=== PATIENT | female | born 1955 | race Asian ===

== ENCOUNTER 2022-02-19 15:47 | Outpatient (CLI) | payer MEDICAID ==
[2022-02-19 18:09] LABS: CREATININE,URINE 78.7 mg/dL; MICROALBUM/CREATININE RATIO,UR 8.9 ug/mg (<30.0); MICROALBUMIN,URINE 0.7 mg/dL (0-300.0)
[2022-02-19 21:14] LABS: ESTIMATED AVERAGE GLUCOSE 240 mg/dL (70-100)
== END 2022-02-19 15:48 | disposition home or self-care (01) ==
LOC: LAB.N 15:47
PROVIDERS: ATTEND Nurse Practitioner
DX: E11.9 Type 2 diabetes mellitus without complications (principal)
CPT/HCPCS: 36415; 82043; 82570; 83036

== ENCOUNTER 2022-05-16 15:20 | Outpatient (CLI) | payer MEDICAID ==
[2022-05-16 17:39] LABS: BASOPHILS % (AUTO) 0.5 %; EOSINOPHILS # (AUTO) 0.2 10^3/uL (0.0-0.7); EOSINOPHILS % (AUTO) 2.4 %; HCT - HEMATOCRIT 36.4 % (37.0-47.0); LYMPHOCYTES # (AUTO) 3.4 10^3/uL (1.5-3.5); LYMPHOCYTES % (AUTO) 39.9 %; MEAN CORPUSCULAR HEMOGLOBIN 29.1 pg (27.0-31.0); MEAN CORPUSCULAR VOLUME 88.1 fL (81.0-99.0); MEAN PLATELET VOLUME 10.7 fL (7.9-10.8); MONOCYTES # (AUTO) 0.7 10^3/uL (0.0-1.0); MONOCYTES % (AUTO) 8.5 %; NEUTROPHILS # (AUTO) 4.1 10^3/uL (1.5-6.6); NEUTROPHILS % (AUTO) 48.5 %; PLT - PLATELET COUNT 196 10^3/uL (130-450); RED BLOOD COUNT 4.13 10^6/uL (4.20-5.40); RED CELL DISTRIBUTION WIDTH 13.8 % (12.0-15.0); WHITE BLOOD COUNT 8.4 x10^3/uL (4.8-10.8)
[2022-05-16 18:28] LABS: ALBUMIN 4.3 g/dL (3.2-5.5); ALBUMIN/GLOBULIN RATIO 1.1 (1.0-2.2); BILIRUBIN,TOTAL 0.5 mg/dL (0.2-1.0); CALCIUM 10.1 mg/dL (8.5-10.3); POTASSIUM 4.5 mmol/L (3.5-5.0); TOTAL PROTEIN 8.3 g/dL (6.7-8.2)
[2022-05-16 18:33] LABS: CREATININE,URINE 118.8 mg/dL; MICROALBUMIN,URINE 11.4 mg/dL (0-300.0)
[2022-05-16 19:14] LABS: THYROID STIMULATING HORMONE 0.22 uIU/mL (0.34-5.60)
[2022-05-16 19:59] LABS: FREE T4 (FREE THYROXINE) 1.01 ng/dL (0.58-1.64)
[2022-05-16 21:02] LABS: ESTIMATED AVERAGE GLUCOSE 169 mg/dL (70-100); HEMOGLOBIN A1c% 7.5 % (4.27-6.07)
== END 2022-05-16 15:21 | disposition home or self-care (01) ==
LOC: LAB.N 15:20
PROVIDERS: ATTEND Nurse Practitioner
DX: E11.9 Type 2 diabetes mellitus without complications (principal); R53.83 Other fatigue
CPT/HCPCS: 36415; 80053; 82043; 82570; 83036; 84439; 84443; 85025

== ENCOUNTER 2022-11-26 15:15 | Outpatient (CLI) | payer MEDICAID ==
[2022-11-26 17:45] LABS: BASOPHILS % (AUTO) 0.3 %; EOSINOPHILS # (AUTO) 0.2 10^3/uL (0.0-0.7); EOSINOPHILS % (AUTO) 2.5 %; HGB - HEMOGLOBIN 11.9 g/dL (12.0-16.0); LYMPHOCYTES # (AUTO) 2.9 10^3/uL (1.5-3.5); LYMPHOCYTES % (AUTO) 44.3 %; MEAN CORPUSCULAR HEMOGLOBIN 27.5 pg (27.0-31.0); MEAN CORPUSCULAR HGB CONC 32.2 g/dL (32.0-36.0); MEAN CORPUSCULAR VOLUME 85.5 fL (81.0-99.0); MEAN PLATELET VOLUME 9.7 fL (7.9-10.8); MONOCYTES # (AUTO) 0.5 10^3/uL (0.0-1.0); MONOCYTES % (AUTO) 7.7 %; NEUTROPHILS # (AUTO) 2.9 10^3/uL (1.5-6.6); PLT - PLATELET COUNT 242 10^3/uL (130-450); RED BLOOD COUNT 4.33 10^6/uL (4.20-5.40); RED CELL DISTRIBUTION WIDTH 14.6 % (12.0-15.0); WHITE BLOOD COUNT 6.5 x10^3/uL (4.8-10.8)
[2022-11-26 18:08] LABS: ALBUMIN 3.6 g/dL (3.2-5.5); ALBUMIN/GLOBULIN RATIO 0.8 (1.0-2.2); ALT ALANINE AMINOTRANSFERASE 44 IU/L (10-60); AST ASPARTATE AMINOTRANSFERASE 41 IU/L (10-42); BILIRUBIN,TOTAL 0.4 mg/dL (0.2-1.0); BUN - BLOOD UREA NITROGEN 20 mg/dL (6-20); CALCIUM 9.3 mg/dL (8.5-10.3); CARBON DIOXIDE - CO2 22 mmol/L (21-32); CHLORIDE 111 mmol/L (101-111); CHOL/HDL RATIO 5.8 (<4.4); CHOLESTEROL 69 mg/dL; CREATININE 1.4 mg/dL (0.4-1.0); GFR - MDRD 38 (>89); GLUCOSE 97 mg/dL (70-100); HDL CHOLESTEROL 12 mg/dL; LDL CHOLESTEROL,CALCULATED 42 mg/dL; LDL/HDL RATIO 3.5 (<4.4); POTASSIUM 3.9 mmol/L (3.5-5.0); SODIUM 140 mmol/L (135-145); TOTAL PROTEIN 8.3 g/dL (6.7-8.2); TRIGLYCERIDES 75 mg/dL; VLDL CHOLESTEROL 15 mg/dL
[2022-11-26 18:13] LABS: THYROID STIMULATING HORMONE < 0.08 uIU/mL (0.34-5.60)
[2022-11-26 18:15] LABS: FREE T4 (FREE THYROXINE) 1.12 ng/dL (0.58-1.64)
[2022-11-26 18:18] LABS: CREATININE,URINE 237.3 mg/dL; MICROALBUM/CREATININE RATIO,UR 150.4 ug/mg (<30.0); MICROALBUMIN,URINE 35.7 mg/dL (0-300.0)
[2022-11-26 18:27] LABS: ALKALINE PHOSPHATASE 90 IU/L (42-121)
[2022-11-26 20:53] LABS: ESTIMATED AVERAGE GLUCOSE 123 mg/dL (70-100); HEMOGLOBIN A1c% 5.9 % (4.27-6.07)
== END 2022-11-26 15:16 | disposition home or self-care (01) ==
LOC: LAB.N 15:15
PROVIDERS: ATTEND Nurse Practitioner
DX: E11.22 Type 2 diabetes mellitus with diabetic chronic kidney disease (principal); N18.4 Chronic kidney disease, stage 4 (severe); N28.89 Other specified disorders of kidney and ureter; E78.5 Hyperlipidemia, unspecified; R94.6 Abnormal results of thyroid function studies
CPT/HCPCS: 36415; 80053; 80061; 82043; 82570; 83036; 83721; 84439; 84443; 85025

== ENCOUNTER 2022-12-16 13:16 | Outpatient (CLI) | payer MEDICAID | END 2022-12-16 13:17 | disposition home or self-care (01) | LOC: MAC.MOP 13:16 | PROVIDERS: ATTEND Physician Assistant | DX: Z86.73 Personal history of transient ischemic attack (TIA), and cerebral infarction without residual deficits (principal) | CPT/HCPCS: 93246 ==

== ENCOUNTER 2023-01-09 10:30 | Outpatient (CLI) | payer MEDICAID | END 2023-01-09 10:31 | disposition home or self-care (01) | LOC: MAC.INF 10:30 | PROVIDERS: ATTEND Nurse Practitioner | DX: I47.1 Supraventricular tachycardia (principal); I47.20 Ventricular tachycardia, unspecified; I49.1 Atrial premature depolarization; I49.3 Ventricular premature depolarization; Z86.73 Personal history of transient ischemic attack (TIA), and cerebral infarction without residual deficits | CPT/HCPCS: 93248 ==

== ENCOUNTER 2023-08-21 15:13 | Outpatient (CLI) | payer MEDICAID ==
[2023-08-21 18:32] LABS: ALBUMIN 4.5 g/dL (3.2-5.5); ALBUMIN/GLOBULIN RATIO 1.3 (1.0-2.2); BILIRUBIN,TOTAL 0.6 mg/dL (0.2-1.0); CALCIUM 10.4 mg/dL (8.5-10.3); CREATININE 1.4 mg/dL (0.6-1.3); TOTAL PROTEIN 7.9 g/dL (6.4-8.9)
[2023-08-21 18:44] LABS: THYROID STIMULATING HORMONE 0.89 uIU/mL (0.34-5.60)
[2023-08-21 22:23] LABS: ESTIMATED AVERAGE GLUCOSE 146 mg/dL (70-100); HEMOGLOBIN A1c% 6.7 % (4.27-6.07)
== END 2023-08-21 15:14 | disposition home or self-care (01) ==
LOC: LAB.N 15:13
PROVIDERS: ATTEND Nurse Practitioner
DX: E11.22 Type 2 diabetes mellitus with diabetic chronic kidney disease (principal); N18.4 Chronic kidney disease, stage 4 (severe); E11.649 Type 2 diabetes mellitus with hypoglycemia without coma; Z51.81 Encounter for therapeutic drug level monitoring; R94.6 Abnormal results of thyroid function studies
CPT/HCPCS: 36415; 80053; 83036; 84439; 84443

== ENCOUNTER 2024-02-16 09:43 | Outpatient (CLI) | payer MEDICAID ==
[2024-02-16 12:09] LABS: BASOPHILS % (AUTO) 0.5 %; EOSINOPHILS # (AUTO) 0.2 10^3/uL (0.0-0.7); EOSINOPHILS % (AUTO) 2.3 %; HCT - HEMATOCRIT 34.4 % (37.0-47.0); LYMPHOCYTES # (AUTO) 3.1 10^3/uL (1.5-3.5); LYMPHOCYTES % (AUTO) 40.1 %; MEAN CORPUSCULAR HEMOGLOBIN 29.3 pg (27.0-31.0); MEAN CORPUSCULAR VOLUME 91.5 fL (81.0-99.0); MEAN PLATELET VOLUME 10.6 fL (7.9-10.8); MONOCYTES # (AUTO) 0.5 10^3/uL (0.0-1.0); MONOCYTES % (AUTO) 6.4 %; NEUTROPHILS # (AUTO) 3.9 10^3/uL (1.5-6.6); NEUTROPHILS % (AUTO) 50.4 %; PLT - PLATELET COUNT 195 10^3/uL (130-450); RED BLOOD COUNT 3.76 10^6/uL (4.20-5.40); RED CELL DISTRIBUTION WIDTH 14.2 % (12.0-15.0); WHITE BLOOD COUNT 7.8 x10^3/uL (4.8-10.8)
[2024-02-16 12:17] LABS: CREATININE,URINE 142.4 mg/dL; MICROALBUM/CREATININE RATIO,UR 13.3 ug/mg (<30.0); MICROALBUMIN,URINE 1.9 mg/dL
[2024-02-16 12:30] LABS: ALBUMIN 4.3 g/dL (3.2-5.5); ALBUMIN/GLOBULIN RATIO 1.3 (1.0-2.2); ALKALINE PHOSPHATASE 66 IU/L (42-121); ALT ALANINE AMINOTRANSFERASE 20 IU/L (10-60); AST ASPARTATE AMINOTRANSFERASE 20 IU/L (10-42); BILIRUBIN,TOTAL 0.7 mg/dL (0.2-1.0); BUN - BLOOD UREA NITROGEN 30 mg/dL (6-20); CALCIUM 10.1 mg/dL (8.5-10.3); CARBON DIOXIDE - CO2 25 mmol/L (21-32); CHLORIDE 107 mmol/L (101-111); CHOL/HDL RATIO 4.2 (<4.4); CHOLESTEROL 93 mg/dL; CREATININE 1.4 mg/dL (0.6-1.3); GFR - MDRD 38 (>89); GLUCOSE 133 mg/dL (74-104); HDL CHOLESTEROL 22 mg/dL; LDL CHOLESTEROL,CALCULATED 58 mg/dL; LDL/HDL RATIO 2.6 (<4.4); POTASSIUM 3.7 mmol/L (3.5-4.5); SODIUM 138 mmol/L (135-145); TOTAL PROTEIN 7.7 g/dL (6.4-8.9); TRIGLYCERIDES 64 mg/dL (48-352); VLDL CHOLESTEROL 13 mg/dL
[2024-02-16 12:34] LABS: ESTIMATED AVERAGE GLUCOSE 143 mg/dL (70-100); HEMOGLOBIN A1c% 6.6 % (4.27-6.07)
== END 2024-02-16 09:44 | disposition home or self-care (01) ==
LOC: LAB.N 09:43
PROVIDERS: ATTEND Nurse Practitioner
DX: I12.9 Hypertensive chronic kidney disease with stage 1 through stage 4 chronic kidney disease, or unspecified chronic kidney disease (principal); E11.22 Type 2 diabetes mellitus with diabetic chronic kidney disease; N18.32 Chronic kidney disease, stage 3b; E78.5 Hyperlipidemia, unspecified
CPT/HCPCS: 36415; 80053; 80061; 82043; 82570; 83036; 83721; 85025

== ENCOUNTER 2024-04-29 18:33 | Emergency (ER) | payer MEDICAID ==
--- NOTE | 2024-04-29 19:08 | ED Physician Documentation ---
History of Present Illness - Stated complaint Stated Complaint: LT LEG SWELLING - Chief complaint Chief Complaint: Ext Problem - History obtained from History obtained from: Patient - Additonal information Additional information: HPI from patient. Patient complains of 4 days of atraumatic left leg pain and swelling of the left knee. Denies trauma. Pain and swelling were of gradual onset, steadily progressive. The pain is distinctly worse with weight-bearing. Denies fever, chest pain, shortness of breath. Denies history of similar symptoms. Patient has history of gout but says that previous gout attacks have always occurred in the feet and/or ankles. PD PAST MEDICAL HISTORY - Past Medical History Past Medical History: Yes Cardiovascular: Hypertension, High cholesterol Respiratory: None Neuro: None Endocrine/Autoimmune: Type 2 diabetes GI: None WINDOW REPAIRER: None : None HEENT: None Psych: None Musculoskeletal: Gout Derm: None - Present Medications Home Medications: Ambulatory Orders Medication Instructions Recorded Confirmed Aspirin Chewable [[place] 81 mg PO DAILY 04/29/24 04/29/24 Aspirin] Atorvastatin Calcium [Lipitor] 80 mg PO DAILY 04/29/24 04/29/24 Chlorthalidone 25 mg PO DAILY 04/29/24 04/29/24 HYDROcod/ACETAM 5/325 [[place] 5/325] 1 - 2 tablet PO Q6H PRN #14 tablet 04/29/24 Metoprolol Tartrate [Lopressor] 25 mg PO DAILY 04/29/24 04/29/24 Olmesartan Medoxomil 10 mg PO DAILY 04/29/24 04/29/24 amLODIPine [Norvasc] 5 mg PO DAILY 04/29/24 04/29/24 glipiZIDE [Glipizide] 2.5 mg PO DAILY 04/29/24 04/29/24 metFORMIN [Glucophage] 500 mg PO DAILY 04/29/24 04/29/24 predniSONE [Deltasone] 10 mg PO [id number] #42 tab 04/29/24 - Allergies Allergies/Adverse Reactions: Allergies Allergy/AdvReac Type Severity Reaction Status Date / Time No Known Drug Allergies Allergy Verified 04/29/24 18:42 - Social History Does the pt smoke?: No Smoking Status: Never smoker Does the pt drink ETOH?: No Does the pt have substance abuse?: No - Immunizations Immunizations are current?: Yes - POLST Patient has POLST: No PD ED PE NORMAL - Vitals Vital signs reviewed: Yes - General General: Alert and oriented X 3, No acute distress, Well developed/nourished - Derm Derm: Normal color PD ED PE EXPANDED - Extremities Extremities: Other (left knee with mild swelling, increased warmth to touch (compared to right knee). Mild TTP. no erythema. TERRELL although increased pain with full flexion) Results - Vitals Vitals: Vital Signs - 24 hr 04/29/24 04/29/24 04/29/24 18:35 20:59 22:02 Temperature 36.9 C 36.8 C Heart Rate 73 69 84 Respiratory 16 16 16 Rate Blood Pressure 125/56 L 133/61 H 144/68 H O2 Saturation 100 100 97 Oxygen O2 Source Room air - Rads (name of study) LLE US Relevant Findings:: Prelim report reviewed, See rad report PD Medical Decision Making - ED course Complexity details: reviewed results, re-evaluated patient, considered differential, d/w patient ED course: No evidence of DVT on LLE ultrasound. Ultrasound does show a Sampson's cyst as well as a knee effusion (the effusion is evident on the physical exam). Will treat empirically for gouty arthritis. She is given 2 tablets of Vicodin p.o. and 60 mg prednisone p.o. I am providing a 10-day tapering course of pre dnisone along with a prescription for a brief course of PRN Vicodin. Return precautions are carefully reviewed. Within the return precautions discussed are return for fever (100.4 or higher), redness of the joint, or worsening symptoms that are not controlled with the provided medications. I instructed her to contact her primary care provider to arrange for the next available appointment for follow-up/reevaluation. Departure - Departure Disposition: 01 Home, Self Care Clinical Impression: Gout Qualifiers: Gout site: knee Gout etiology: unspecified cause Chronicity: acute Laterality: left Qualified Code(s): M10.9 - Gout, unspecified Condition: Good Instructions: ED Arthritis Gout, ED Diet Gout Follow-Up: Sirisha Moody ARNP [Primary Care Provider] - Prescriptions: predniSONE [Deltasone] 10 mg PO [id number] #42 tab HYDROcod/ACETAM 5/325 [[place] 5/325] 1 - 2 tablet PO Q6H PRN #14 tablet PRN Reason: Pain Comments: There is no evidence of blood clot on the ultrasound. The ultrasound does show a Bakers cyst (which is an incidental finding) as well as swelling which is obvious on the physical exam). As we discussed, I suspect your symptoms are due to a gouty attack. For this, you were given the first dose of prednisone (steroid) in the emergency department as well as Vicodin (narcotic/opiate pain medication), and I have electronically submitted prescriptions for both of these medications to the [facility] pharmacy in [place]. Contact your primary care provider when the office next opens to arrange for the next available appointment for follow-up/reevaluation. I am prescribing a short course of narcotic pain medication for you. These are potentially dangerous and addictive medications that should be used carefully. These medications may constipate you. Take an ycui-wmm-tkinqkh stool softener (docusate) twice daily with plenty of water while taking these medications. If you go 24 hours without a bowel movement, take [id number] miralax, per package instructions. Do not drink or drive while taking these medications. If you received narcotic or sedating medications while in the emergency department, do not drive for 24 hours. Store this medication in a safe, secure place and out of reach of children. It is a violation of federal law to give or sell this medication to another person or to use in a manner other than prescribed. The ED will not refill narcotic prescriptions, including prescriptions lost or stolen. To dispose of unwanted medications: 1. [facility] at [address] in [place] has a medication drop box. They accept prescription medications (in pill form) Friday through Friday 9:00 a.m. to 5:00 p.m. 2. [facility] [employer] [facility] accepts prescription medications (in pill form only) for disposal year round. Call for more information. 3. Contact the [facility] for the next [facility] sponsored prescription drug collection event. , [phone], or [phone]; Discharge Date/Time: 04/29/24 22:02
--- NOTE | 2024-04-29 21:10 | Ultrasound Report ---
PROCEDURE: Duplex Ext Veins Left INDICATIONS: leg swell TECHNIQUE: Real-time imaging, as well as color and pulse Doppler interrogation, were performed of the lower extr emity deep veins from the inguinal ligament to the popliteal fossa. Attempted visualization of the ca lf veins was performed. COMPARISON: None. FINDINGS: The deep veins are normally compressible, and free of intraluminal thrombus. Color and pu lse Doppler demonstrate normal phasic intraluminal flow. There is normal augmentation response to di stal compression maneuver. Sampson's cyst measuring 2.0 x 0.7 x 3.6 cm. Left knee effusion measuring 5. 2 x 1.6 x 6.5 cm. IMPRESSION: No deep venous thrombosis of the visualized lower extremity. Agree with preliminary interpretation provided to the ordering provider by the ultrasound technologis tChikis Reviewed by: Immanuel Womack MD on 04/29/2024 9:09 PM PDT Approved by: Immanuel Womack MD on 04/29/2024 9:09 PM PDT Station ID: [id number]
[2024-04-29] MEDS: predniSONE 20 MG TABLET PO STA ×2 (21:57)
[2024-04-29] MEDS: HYDROcod/ACETAM 5/325 MG TABLET PO STA (21:57)
[2024-04-29 22:02] VITALS: BP 144/68; O2SAT 97
== END 2024-04-29 22:02 | disposition home or self-care (01) ==
LOC: ED 18:33
DX: M10.9 Gout, unspecified (principal); M71.22 Synovial cyst of popliteal space [Baker], left knee; M25.462 Effusion, left knee
CPT/HCPCS: 93971; 99283; 99284; A9270; J7512